=== PATIENT | male | born 1985 | race Caucasian/White ===

== ENCOUNTER 2017-03-07 00:55 | Inpatient (IN) | payer OTHER, SELFPAY ==
[2017-03-07] MEDS ORDERED: Ondansetron HCl/PF 4 MG/2 ML Vial ONE ×2 (01:00→09:42)
[2017-03-07] MEDS ORDERED: Adacel (T-DAP) 0.5 ML VIAL ONE (01:00)
[2017-03-07 01:23] LABS: Hemoglobin 14.1 g/dL (14.0-18.0); Mean Corpuscular HGB CONC 34.4 g/dL (32.0-36.0); Mean Corpuscular Hemoglobin 36.1 pg (27.0-31.0); Mean Platelet Volume 6.3 fL (7.4-10.4); Platelet Count 308 thou/uL (130-400); RBC Distribution Width 11.6 % (11.5-14.5); White Blood Cell (WBC) Count 19.7 thou/uL (4.8-10.8)
[2017-03-07 01:29] LABS: INR-International Normal Ratio 1.2; PTT 26.6 SEC (22.9-36.1); Prothrombin Time 15.3 SEC (12.0-14.7)
[2017-03-07 01:35] LABS: ALT (SGPT) 1220 U/L (8-55); AST (SGOT) 1494 U/L (5-34); Alcohol 299 mg/dL (Less than 10); Alkaline Phosphatase 88 U/L (40-150); Anion Gap 16 mmol/L (10-20); BUN (Urea Nitrogen) 10 mg/dL (8.9-20.6); Bilirubin, Total 0.3 mg/dL (0.2-1.2); Calc. Creatinine Clearance 0 mL/min (70-130); Calcium 8.4 mg/dL (7.8-10.44); Carbon Dioxide 19 mmol/L (22-29); Chloride 100 mmol/L (98-107); Estimated GFR-MDRD 90; Globulin 2.8 g/dL (2.4-3.5); Glucose 142 mg/dL (70-105); Lipase 651 U/L (8-78); Potassium 3.4 mmol/L (3.5-5.1); Protein, Total 6.8 g/dL (6.0-8.3); Sodium 132 mmol/L (136-145)
[2017-03-07 01:36] LABS: #Basophils 0.1 thou/uL (0.0-0.2); #Eosinphils 0.1 thou/uL (0.0-0.7); #Lymphocytes 2.6 thou/uL (1.20-3.40); #Monocytes 0.7 thou/uL (0.11-0.59); #Neutrophils 16.2 thou/uL (1.40-6.50); %Basophils 0.4 % (0.0-1.0); %Eosinophils 0.5 % (0.0-10.0); %Lymphocytes 13.1 % (21.0-51.0); %Monocytes 3.6 % (0.0-10.0); %Neutrophils 82.5 % (42.0-75.0); MDiff Complete? YES; Macrocytosis MODERATE=16-30 cells (100X) (0-5/hpf)
[2017-03-07] MEDS ORDERED: Morphine 4 MG/ML VIAL ONE (01:45)
[2017-03-07] MEDS ORDERED: Ondansetron ODT 4 MG TAB SL PRN (03:54)
[2017-03-07] MEDS ORDERED: Morphine 4 MG/ML VIAL SLOW IVP PRN ×2 (03:54)
[2017-03-07] MEDS: Sodium Chloride 0.9% 1,000 ML IV SCH ×2 (03:58→12:40)
[2017-03-07] MEDS: Ondansetron HCl/PF 4 MG/2 ML Vial IVP PRN ×2 (03:58→12:41)
[2017-03-07 04:23] VITALS: BMI 20.2
[2017-03-07] MEDS ORDERED: Acetaminophen 1,000 MG in Premix Bag 1 BAG IVPB SCH (05:15)
[2017-03-07 05:40] LABS: #Lymphocytes 1.1 thou/uL (1.20-3.40); #Monocytes 1.6 thou/uL (0.11-0.59); #Neutrophils 14.4 thou/uL (1.40-6.50); %Basophils 0.1 % (0.0-1.0); %Eosinophils 0.2 % (0.0-10.0); %Lymphocytes 6.3 % (21.0-51.0); %Monocytes 9.3 % (0.0-10.0); %Neutrophils 84.1 % (42.0-75.0); Mean Corpuscular HGB CONC 33.5 g/dL (32.0-36.0); Mean Corpuscular Hemoglobin 34.9 pg (27.0-31.0); Mean Platelet Volume 6.6 fL (7.4-10.4); Platelet Count 274 thou/uL (130-400); RBC Distribution Width 11.6 % (11.5-14.5); Red Blood Cell (RBC) Count 3.72 mill/uL (4.70-6.10); White Blood Cell (WBC) Count 17.1 thou/uL (4.8-10.8)
[2017-03-07] MEDS ORDERED: traMADol HCl 50 MG TAB PO PRN (07:03)
[2017-03-07] MEDS ORDERED: Dextrose 5% in Water 1,000 ML IV PRN (07:03)
[2017-03-07] MEDS ORDERED: Dextrose 50% Abboject 50 ML SYRINGE SLOW IVP PRN (07:03)
[2017-03-07] MEDS ORDERED: Ondansetron ODT 4 MG TAB PO PRN (07:03)
[2017-03-07] MEDS ORDERED: Ondansetron HCl/PF 4 MG/2 ML Vial IVP PRN (07:03)
[2017-03-07] MEDS ORDERED: Promethazine HCl 25 MG/ML VIAL IM PRN (07:03)
[2017-03-07 07:43] LABS: Hemoglobin 13.8 g/dL (14.0-18.0)
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
[2017-03-07] MEDS: Morphine 4 MG/ML VIAL SLOW IVP PRN ×2 (08:36→13:38)
[2017-03-07] MEDS: Famotidine 20 MG TAB PO SCH ×2 (08:37→20:42)
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
[2017-03-07] MEDS ORDERED: FLU VACC QS2017-18 36 mo. & older 0.5 ML SYRINGE IM ONE (09:00)
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
[2017-03-07] MEDS ORDERED: Lidocaine 1% PF 5 ML VIAL ONE (09:42)
[2017-03-07] MEDS ORDERED: Glycopyrrolate 0.2 MG/ML 5 ML SYRINGE ONE (09:42)
[2017-03-07] MEDS ORDERED: PROPOFOL 200 MG/20 ML VIAL ONE (09:42)
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
[2017-03-07] MEDS: traMADol HCl 50 MG TAB PO PRN ×2 (12:41→20:18)
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
[2017-03-07] MEDS ORDERED: ISOVUE-370 76%-LOCM 1 ML ONE (13:41)
[2017-03-07] MEDS: Cyclobenzaprine 10 MG TAB PO PRN ×2 (14:29→22:21)
[2017-03-07] MEDS: HYDROcodone/Acetaminophen 5/325 mg Tablet PO PRN ×2 (17:56→22:17)
[2017-03-07] MEDS: Morphine 2 MG/ML SYRINGE SLOW IVP PRN (23:50)
[2017-03-08] MEDS: Morphine 2 MG/ML SYRINGE SLOW IVP PRN ×2 (01:55→05:48)
[2017-03-08] MEDS: HYDROcodone/Acetaminophen 5/325 mg Tablet PO PRN (03:55)
[2017-03-08 05:20] LABS: #Lymphocytes 0.7 thou/uL (1.20-3.40); #Monocytes 0.8 thou/uL (0.11-0.59); #Neutrophils 8.6 thou/uL (1.40-6.50); %Basophils 0.1 % (0.0-1.0); %Eosinophils 0.2 % (0.0-10.0); %Monocytes 7.7 % (0.0-10.0); Hemoglobin 12.7 g/dL (14.0-18.0); Mean Corpuscular HGB CONC 33.7 g/dL (32.0-36.0); Mean Platelet Volume 6.4 fL (7.4-10.4); Platelet Count 209 thou/uL (130-400); RBC Distribution Width 11.7 % (11.5-14.5); Red Blood Cell (RBC) Count 3.62 mill/uL (4.70-6.10); White Blood Cell (WBC) Count 10.1 thou/uL (4.8-10.8)
[2017-03-08 05:44] LABS: Anion Gap 10 mmol/L (10-20); BUN (Urea Nitrogen) 11 mg/dL (8.9-20.6); Calc. Creatinine Clearance 143 mL/min (70-130); Calcium 8.6 mg/dL (7.8-10.44); Carbon Dioxide 25 mmol/L (22-29); Chloride 99 mmol/L (98-107); Estimated GFR-MDRD Greater than 90; Glucose 112 mg/dL (70-105); Potassium 4.5 mmol/L (3.5-5.1); Sodium 129 mmol/L (136-145)
[2017-03-08] MEDS: traMADol HCl 50 MG TAB PO PRN (08:21)
[2017-03-08] MEDS: Cyclobenzaprine 10 MG TAB PO PRN (08:21)
[2017-03-08] MEDS: Famotidine 20 MG TAB PO SCH ×2 (08:21→22:23)
--- NOTE | 2017-03-08 13:40 | PRG ---
DATE OF SERVICE: 03/08/2017 SUBJECTIVE: Mr. Madison was in the process of being discharged home today, but developed worsening ab dominal pain. PHYSICAL EXAMINATION: VITAL SIGNS: He is afebrile, heart rate 80, and blood pressure 150/70. LUNGS: Clear to auscultation. CARDIAC: Regular rate and rhythm without murmur or gallop. ABDOMEN: Soft, slightly protuberant. He has guarding throughout his abdomen. LABORATORY DATA: His white count this morning is 10, hemoglobin 12. Basic metabolic profile: Sodiu m 129, potassium 4.5, carbon dioxide 25, BUN 11, and creatinine 0.71. ASSESSMENT AND PLAN: Concerned about an acute abdomen, although vital signs are normal. Laboratorie s are normal. This morning, we will obtain stat labs, upright chest x-ray, and repeat CT scan of abd omen and pelvis. We will make further recommendations based on these imaging studies and repeat exam . He is likely to need a laparotomy with his exam. He has no bowel sounds and has acute abdomen fin dings with discrepancy of normal labs and vital signs.
[2017-03-08 13:45] LABS: #Lymphocytes 0.6 thou/uL (1.20-3.40); #Monocytes 0.9 thou/uL (0.11-0.59); #Neutrophils 9.5 thou/uL (1.40-6.50); %Basophils 0.1 % (0.0-1.0); %Eosinophils 0.3 % (0.0-10.0); %Lymphocytes 5.4 % (21.0-51.0); %Neutrophils 86.2 % (42.0-75.0); Hemoglobin 13.5 g/dL (14.0-18.0); Mean Corpuscular HGB CONC 34.4 g/dL (32.0-36.0); Mean Corpuscular Hemoglobin 35.6 pg (27.0-31.0); Mean Platelet Volume 6.7 fL (7.4-10.4); Platelet Count 204 thou/uL (130-400); RBC Distribution Width 11.6 % (11.5-14.5)
[2017-03-08] MEDS ORDERED: Morphine 5 mg/5 ml in 0.9% NaCl/PF SYRINGE SLOW IVP PRN (13:45)
[2017-03-08] MEDS ORDERED: ISOVUE-370 76%-LOCM 1 ML ONE (13:48)
[2017-03-08] MEDS ORDERED: Iopamidol 370 76% 50 ML VIAL FS ONE (13:48)
[2017-03-08] MEDS: Sodium Chloride 0.9% 1,000 ML IV SCH ×3 (14:01→22:31)
[2017-03-08 14:06] LABS: ALT (SGPT) 1649 U/L (8-55); AST (SGOT) 1106 U/L (5-34); Albumin 3.6 g/dL (3.5-5.0); Alkaline Phosphatase 91 U/L (40-150); Anion Gap 11 mmol/L (10-20); BUN (Urea Nitrogen) 11 mg/dL (8.9-20.6); Bilirubin, Total 1.1 mg/dL (0.2-1.2); Calc. Creatinine Clearance 143 mL/min (70-130); Calcium 8.9 mg/dL (7.8-10.44); Carbon Dioxide 24 mmol/L (22-29); Chloride 99 mmol/L (98-107); Estimated GFR-MDRD Greater than 90; Globulin 2.5 g/dL (2.4-3.5); Glucose 118 mg/dL (70-105); Lipase 139 U/L (8-78); Potassium 4.5 mmol/L (3.5-5.1); Protein, Total 6.1 g/dL (6.0-8.3); Sodium 129 mmol/L (136-145)
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
[2017-03-08] MEDS ORDERED: Levofloxacin 500 mg/D5W 100 ml Premix Bag ONE (19:14)
[2017-03-08] MEDS ORDERED: Bupivacaine/Epinephrine 0.25% 30 ML VIAL ONE (19:32)
[2017-03-08] MEDS ORDERED: Fentanyl 100 MCG/2 ML VIAL ONE ×2 (19:37→20:55)
[2017-03-08] MEDS ORDERED: Acetaminophen 1,000 MG in Premix Bag 1 BAG IVPB PRN (21:21)
[2017-03-08] MEDS ORDERED: Morphine 4 MG/ML VIAL SLOW IVP PRN (21:21)
[2017-03-08] MEDS: Ketorolac Tromethamine 30 MG/ML VIAL IVP PRN (22:24)
--- NOTE | 2017-03-08 22:27 | PRG ---
DATE OF SERVICE: 03/08/2017 SUBJECTIVE: Mr. Madison has had a chest x-ray, which does not reveal any free air or acute findings. CT scan of abdomen and pelvis has been obtained with p.o. and IV contrast revealing a stable comminu dain hepatic flexure fracture, right-sided pleural effusion and increased intraperitoneal fluid and so me focal dilatation of the mid small bowel. Repeat laboratory this afternoon revealed a white count 11, hemoglobin 13, sodium 129, potassium 4.5, glucose 118, AST 1106, ALT 1649, lipase 139 down from 6 51 on admission. The patient with abdominal tenderness, distention and pain, I would recommend lapar oscopic evaluation and evacuation of fluid and placement of drains. I have discussed with the patien t and he agrees. We will plan this tonight. Depending on the output of the fluid, consideration for ERCP, sphincterotomy could be given in the next day or two. We will postpone that procedure and jeancarlos luation for need of that procedure based on clinical course and findings.
[2017-03-09] MEDS: traMADol HCl 50 MG TAB PO PRN (00:04)
[2017-03-09] MEDS: Sodium Chloride 0.9% 1,000 ML IV SCH ×4 (03:55→08:33)
[2017-03-09 05:31] LABS: INR-International Normal Ratio 1.3; PTT 31.9 SEC (22.9-36.1); Prothrombin Time 16.4 SEC (12.0-14.7)
[2017-03-09 05:34] LABS: #Eosinphils 0.1 thou/uL (0.0-0.7); #Lymphocytes 0.5 thou/uL (1.20-3.40); #Monocytes 0.5 thou/uL (0.11-0.59); #Neutrophils 4.9 thou/uL (1.40-6.50); %Basophils 0.1 % (0.0-1.0); %Eosinophils 0.8 % (0.0-10.0); %Monocytes 8.5 % (0.0-10.0); %Neutrophils 81.7 % (42.0-75.0); Hemoglobin 11.3 g/dL (14.0-18.0); Mean Corpuscular HGB CONC 34.4 g/dL (32.0-36.0); Mean Corpuscular Hemoglobin 35.7 pg (27.0-31.0); Mean Platelet Volume 6.9 fL (7.4-10.4); Platelet Count 179 thou/uL (130-400); RBC Distribution Width 11.6 % (11.5-14.5); Red Blood Cell (RBC) Count 3.16 mill/uL (4.70-6.10)
[2017-03-09 05:57] LABS: ALT (SGPT) 1098 U/L (8-55); AST (SGOT) 683 U/L (5-34); Albumin 3.1 g/dL (3.5-5.0); Alkaline Phosphatase 82 U/L (40-150); Anion Gap 9 mmol/L (10-20); BUN (Urea Nitrogen) 12 mg/dL (8.9-20.6); Bilirubin, Total 1.3 mg/dL (0.2-1.2); Calc. Creatinine Clearance 132 mL/min (70-130); Calcium 8.3 mg/dL (7.8-10.44); Carbon Dioxide 25 mmol/L (22-29); Chloride 98 mmol/L (98-107); Estimated GFR-MDRD Greater than 90; Globulin 2.2 g/dL (2.4-3.5); Glucose 100 mg/dL (70-105); Lipase 55 U/L (8-78); Potassium 4.4 mmol/L (3.5-5.1); Protein, Total 5.3 g/dL (6.0-8.3); Sodium 128 mmol/L (136-145)
[2017-03-09] MEDS: HYDROcodone/Acetaminophen 7.5/325 mg Tablet PO PRN ×3 (08:23→20:03)
[2017-03-09] MEDS: Famotidine 20 MG TAB PO SCH ×2 (08:23→19:55)
[2017-03-09] MEDS: Polyethylene Glycol 3350 17 GM Packet PO SCH (08:23)
[2017-03-09] MEDS ORDERED: Acetaminophen 500 MG TAB PO PRN (09:43)
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
[2017-03-09] MEDS: Ketorolac Tromethamine 30 MG/ML VIAL IVP PRN ×2 (10:00→17:52)
[2017-03-09] MEDS: Cyclobenzaprine 10 MG TAB PO PRN ×2 (10:00→23:25)
--- NOTE | 2017-03-09 10:46 | OP ---
DATE OF PROCEDURE: 03/08/2017 PREOPERATIVE DIAGNOSIS: Grade 4 liver trauma with ascites, peritoneal fluid. POSTOPERATIVE DIAGNOSES: Grade 4 liver trauma with ascites, peritoneal fluid. PROCEDURE: Diagnostic laparoscopy, abdominal washout, evacuation of 1500 mL of old blood. No enteri c fluid was seen. Laparoscopic placement of two #19 Gold BEV drains perihepatic. SURGEON: Jorden Ibrahim M.D. ANESTHESIA: General anesthesia, local.25% Marcaine with epinephrine, 30 mL PROCEDURE: Patient taken to the operating room where under general anesthesia, abdomen was clipped o f hair, prepared with ChloraPrep, draped in a routine fashion. Local anesthetic infiltrated into ski n and subcutaneous tissue about each port site. Infraumbilical incision made and pneumoperitoneum to 15 mm obtained with the Veress needle, replacing it with a 5 port. Video laparoscope inserted. Rig ht lateral and left lateral subcostal incision made and 5 ports placed. There is bloody fluid throug hout the abdominal cavity, but no indication of any enteric fluid and no indication of any bilious fl uid. There was surface change on the right lobe of the liver of traumatic liver injury. There were some minor changes on the left lobe. Bloody fluid was aspirated from the abdominal cavity, aspirated approximately 1500 mL. This was then irrigated with saline solution. Fluid aspirated from the pelv is. Two #19 Gold BEV drains placed at separate trocar sites, secured with 2-0 nylon sutures and drain s were at the right perihepatic and left perihepatic. Pneumoperitoneum evacuated. All instruments removed, and all skin incisions approximated with interrupted subdermal 4-0 Monocryl and Dermabond gl ue applied.
[2017-03-09] MEDS: Enoxaparin Sodium 40 MG/0.4 ML SYRINGE SC SCH (19:57)
[2017-03-10] MEDS: HYDROcodone/Acetaminophen 7.5/325 mg Tablet PO PRN ×5 (00:37→23:09)
[2017-03-10] MEDS: Ketorolac Tromethamine 30 MG/ML VIAL IVP PRN ×2 (05:10→20:19)
[2017-03-10] MEDS: traMADol HCl 50 MG TAB PO PRN (05:10)
[2017-03-10 06:24] LABS: #Eosinphils 0.1 thou/uL (0.0-0.7); #Lymphocytes 0.5 thou/uL (1.20-3.40); #Monocytes 0.5 thou/uL (0.11-0.59); #Neutrophils 3.1 thou/uL (1.40-6.50); %Basophils 0.2 % (0.0-1.0); %Eosinophils 2.3 % (0.0-10.0); %Lymphocytes 11.1 % (21.0-51.0); %Monocytes 12.5 % (0.0-10.0); Hemoglobin 11.3 g/dL (14.0-18.0); Mean Corpuscular HGB CONC 33.5 g/dL (32.0-36.0); Mean Corpuscular Hemoglobin 35.1 pg (27.0-31.0); Mean Platelet Volume 6.7 fL (7.4-10.4); Platelet Count 206 thou/uL (130-400); RBC Distribution Width 11.6 % (11.5-14.5); Red Blood Cell (RBC) Count 3.23 mill/uL (4.70-6.10); White Blood Cell (WBC) Count 4.3 thou/uL (4.8-10.8)
[2017-03-10 06:49] LABS: ALT (SGPT) 683 U/L (8-55); AST (SGOT) 228 U/L (5-34); Albumin 3.1 g/dL (3.5-5.0); Alkaline Phosphatase 84 U/L (40-150); Anion Gap 11 mmol/L (10-20); BUN (Urea Nitrogen) 13 mg/dL (8.9-20.6); Calc. Creatinine Clearance 129 mL/min (70-130); Calcium 8.6 mg/dL (7.8-10.44); Carbon Dioxide 27 mmol/L (22-29); Chloride 97 mmol/L (98-107); Estimated GFR-MDRD Greater than 90; Globulin 2.5 g/dL (2.4-3.5); Glucose 93 mg/dL (70-105); Potassium 4.1 mmol/L (3.5-5.1); Protein, Total 5.6 g/dL (6.0-8.3); Sodium 131 mmol/L (136-145)
[2017-03-10] MEDS: Polyethylene Glycol 3350 17 GM Packet PO SCH ×2 (08:10→09:07)
[2017-03-10] MEDS: Famotidine 20 MG TAB PO SCH ×2 (08:10→20:18)
[2017-03-10] MEDS: Cyclobenzaprine 10 MG TAB PO PRN ×2 (10:20→23:13)
[2017-03-10] MEDS: Senokot S 8.6-50 MG TAB PO SCH ×2 (10:20→20:18)
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
[2017-03-10] MEDS: Enoxaparin Sodium 40 MG/0.4 ML SYRINGE SC SCH (20:18)
[2017-03-11] MEDS: Ketorolac Tromethamine 30 MG/ML VIAL IVP PRN ×2 (03:54→20:17)
[2017-03-11] MEDS ORDERED: Bisacodyl 10 MG SUPP PR SCH (08:45)
[2017-03-11] MEDS: Polyethylene Glycol 3350 17 GM Packet PO SCH ×2 (08:47→08:59)
[2017-03-11] MEDS: Senokot S 8.6-50 MG TAB PO SCH ×2 (08:57→20:17)
[2017-03-11] MEDS: Famotidine 20 MG TAB PO SCH ×2 (08:59→20:17)
[2017-03-11] MEDS: HYDROcodone/Acetaminophen 7.5/325 mg Tablet PO PRN ×2 (09:01→17:48)
--- NOTE | 2017-03-11 16:01 | PRG ---
DATE OF SERVICE: 03/11/2017 SUBJECTIVE: Mr. Madison is awake and alert today. Reports adequate pain control. He is tolerating l iquid diet, passing flatus, but no bowel movement yet. He is having good urinary output. OBJECTIVE: VITAL SIGNS: Today includes blood pressure 142/83, pulse 88, respirations 16, temperature make the m aximum temperature in the last 24 hours is 98.6 degrees Fahrenheit, oxygen saturation is 99% on room air. HEENT: Reveals normocephalic and atraumatic. Pupils are equal, round, and reactive to light and acc ommodation. HEART: Reveals regular rate and rhythm, no murmurs or gallops auscultated. LUNGS: Clear to auscultation bilaterally. Breathing is unlabored. ABDOMEN: Soft, moderately distended. The patient has moderate upper abdominal tenderness to palpati on with no gross rebound tenderness present. Hank-Ford drain remains in place. The left-sided d rain returns approximately 500 mL of bilious fluid. The right BEV drain has a moderate amount of sero sanguineous fluid. IMPRESSION: 1. Stable grade 4 liver laceration. 2. Adynamic ileus, stable. PLAN: 1. Increase activity as tolerated. 2. The patient may advance diet with a better return of bowel function.
[2017-03-11] MEDS: Enoxaparin Sodium 40 MG/0.4 ML SYRINGE SC SCH (20:17)
[2017-03-12] MEDS: traMADol HCl 50 MG TAB PO PRN ×3 (01:03→13:36)
[2017-03-12] MEDS: Cyclobenzaprine 10 MG TAB PO PRN ×2 (01:04→13:34)
[2017-03-12] MEDS: Ketorolac Tromethamine 30 MG/ML VIAL IVP PRN (03:22)
[2017-03-12] MEDS: Famotidine 20 MG TAB PO SCH ×2 (07:36→20:44)
[2017-03-12] MEDS: Senokot S 8.6-50 MG TAB PO SCH ×2 (07:38→20:45)
[2017-03-12] MEDS: Polyethylene Glycol 3350 17 GM Packet PO SCH ×2 (07:38)
[2017-03-12] MEDS: Ibuprofen 600 MG TAB PO SCH ×3 (10:00→23:41)
[2017-03-12] MEDS: Acetaminophen 500 MG TAB PO SCH ×3 (10:00→20:44)
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
[2017-03-12] MEDS ORDERED: Ibuprofen 600 MG TAB PO SCH (14:00)
[2017-03-12] MEDS: Enoxaparin Sodium 40 MG/0.4 ML SYRINGE SC SCH (20:48)
[2017-03-13] MEDS: Acetaminophen 500 MG TAB PO SCH ×2 (04:15→09:34)
[2017-03-13 07:56] VITALS: TEMP 98.2
[2017-03-13] MEDS: Polyethylene Glycol 3350 17 GM Packet PO SCH ×2 (08:11)
[2017-03-13] MEDS: Famotidine 20 MG TAB PO SCH (08:11)
[2017-03-13] MEDS: Senokot S 8.6-50 MG TAB PO SCH (08:12)
[2017-03-13] MEDS: Ibuprofen 600 MG TAB PO SCH (09:33)
[2017-03-13 12:13] VITALS: BP 128/82
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
== END 2017-03-13 15:54 | disposition home or self-care (01) | DRG 964 ==
LOC: ERS 00:55 → SJJU 02:43
PROVIDERS: ADMIT Specialist; ATTEND Specialist
PROC: 0W9F4ZZ Drainage of Abdominal Wall, Percutaneous Endoscopic Approach (ICD-10-PCS; principal; 2017-03-08)
PROC: 0W9F30Z Drainage of Abdominal Wall with Drainage Device, Percutaneous Approach (ICD-10-PCS; 2017-03-08)
DX: S36.116A Major laceration of liver, initial encounter (principal); S27.0XXA Traumatic pneumothorax, initial encounter; R18.8 Other ascites; S00.83XA Contusion of other part of head, initial encounter; S22.31XA Fracture of one rib, right side, initial encounter for closed fracture; S50.12XA Contusion of left forearm, initial encounter; V49.40XA Driver injured in collision with unspecified motor vehicles in traffic accident, initial encounter; Y92.410 Unspecified street and highway as the place of occurrence of the external cause; M25.461 Effusion, right knee; S60.021A Contusion of right index finger without damage to nail, initial encounter; F17.210 Nicotine dependence, cigarettes, uncomplicated; F10.129 Alcohol abuse with intoxication, unspecified; Y90.8 Blood alcohol level of 240 mg/100 ml or more
CPT/HCPCS: 36415; 70450; 71010; 71260; 72125; 74177; 80048; 80053; 80307; 82150; 82247; 83690; 85025; 85610; 85730; 86850; 86900; 86901; 90715; 96361; 96374; 96375; G0390; J0131; J1650; J1885; J1956; J2001; J2270; J2405; J2704; J3010; Q0162